=== PATIENT | male | born 1955 | race Caucasian/White ===

== ENCOUNTER 2018-12-04 15:53 | Inpatient (IN) | payer OTHER ==
[~2018-12-04] VITALS: Ht 185.4 cm; Wt 115.0 kg
[~2018-12-04 15:53] MED LIST: KETOROLAC 30 MG/1 ML ONE; ONDANSETRON 2MG/ML, 2ML ONE; PROPOFOL 10 MG/ML, 20ML ONE
[2018-12-04 17:19] LABS: BASOPHILS # (AUTO) 0.02 x10^3/uL (0-0.1); BASOPHILS % (AUTO) 0 % (0-1); EOSINOPHILS # (AUTO) 0.11 x10^3/uL (0-0.4); EOSINOPHILS % (AUTO) 2 % (1-7); LYMPHOCYTES # (AUTO) 1.18 x10^3/uL (1-3.4); LYMPHOCYTES % (AUTO) 19 % (22-44); MD NO; MEAN CORPUSCULAR HEMOGLOBIN 33.7 pg (27.5-34.5); MEAN CORPUSCULAR HGB CONC 33.9 g/dL (33.2-36.2); MEAN CORPUSCULAR VOLUME 99.3 fL (81-97); MONOCYTES # (AUTO) 0.66 x10^3/uL (0.2-0.8); MONOCYTES % (AUTO) 11 % (2-9); NEUTROPHILS # (AUTO) 4.09 x10^3/uL (1.8-6.8); NEUTROPHILS % (AUTO) 68 % (42-75); PLATELET COUNT 188 x10^3/uL (130-400); RED BLOOD COUNT 4.29 x10^6/uL (4.38-5.82); RED CELL DISTRIBUTION WIDTH 12.6 % (9.4-14.8)
--- NOTE | 2018-12-04 17:27 | NUR ---
PT TO ROOM FROM LOBBY
[2018-12-04 17:28] LABS: ALANINE AMINOTRANSFERASE 37 U/L (12-78); ALBUMIN 4.2 g/dL (3.4-5.0); ANION GAP 8 mmol/L (5-15); CALCIUM 9.7 mg/dL (8.5-10.1); CHLORIDE 101 mmol/L (98-107); CREATININE 1.24 mg/dL (0.7-1.3)
[2018-12-04 17:31] LABS: ALKALINE PHOSPHATASE 102 U/L (45-117); BILIRUBIN,TOTAL 0.6 mg/dL (0.2-1.0); TOTAL PROTEIN 7.6 g/dL (6.4-8.2)
[2018-12-04] MEDS ORDERED: SODIUM CHLORIDE FLUSH 10ML SYR IVF PRN (18:00)
--- NOTE | 2018-12-04 18:00 | NUR ---
PT REPORTS THAT HE TWISTED HIS KNEE LAST SUNDAY WALKING HIS DOG. PT STATES "I BLEW OUT MY KNEE". PT L KNEE IS SWOLLEN AND BRUISED, BUT PT REPORTS "I HAVE NO PAIN". AT BEDSIDE. PT HAD A TOTAL KNEE IN 2014 ON SAME KNEE.
--- NOTE | 2018-12-04 18:08 | NUR ---
REPORT GIVEN TO AMY FOR SURG
[2018-12-04] MEDS: SODIUM CHLORIDE 0.9% 1,000 ML IV SCH (18:10)
[2018-12-04] MEDS ORDERED: TRANEXAMIC ACID 100 MG/ML, 10ML ONE (18:23)
[2018-12-04] MEDS ORDERED: ROPIvacaine/PF 0.2%, 20 ML ONE (18:24)
[2018-12-04] MEDS ORDERED: EPINEPHRINE 1 MG/ML, 1ML ONE (18:25)
[2018-12-04] MEDS ORDERED: MORPHINE SULFATE 4 MG/ML, 1ML IVPush PRN ×2 (18:30→19:00)
[2018-12-04] MEDS ORDERED: ALUMINUM/MAG/SIMETHICONE 30 ML UDC PO PRN (18:30)
[2018-12-04] MEDS ORDERED: ZOLPIDEM 5MG TABLET PO PRN (18:30)
[2018-12-04] MEDS ORDERED: ONDANSETRON 2MG/ML, 2ML IVPush PRN (18:30)
[2018-12-04] MEDS ORDERED: DIPHENHYDRAMINE 25 MG CAPSULE PO PRN (18:30)
[2018-12-04] MEDS ORDERED: ONDANSETRON 4 MG TABLET PO PRN (18:30)
[2018-12-04] MEDS ORDERED: PROMETHAZINE 25 MG/ML, 1ML IM PRN (18:30)
[2018-12-04] MEDS ORDERED: DIAZEPAM 5 MG TABLET PO PRN (18:30)
[2018-12-04] MEDS: ACETAMINOPHEN 500 MG TABLET PO SCH (18:30)
[2018-12-04] MEDS ORDERED: OXYcodone IR 5MG TABLET PO PRN (18:30)
[2018-12-04] MEDS ORDERED: FENTANYL PF 100 MCG/2ML ONE ×4 (18:31→20:39)
[2018-12-04] MEDS ORDERED: MIDAZOLAM 1 MG/ML, 2ML ONE (18:31)
[2018-12-04] MEDS ORDERED: LIDOCAINE 2%, 6 ML JEL.PF.APP MM ONE (18:33)
[2018-12-04] MEDS ORDERED: DEXAMETHASONE 4 MG/ML, 1ML ONE ×2 (18:43→18:48)
[2018-12-04] MEDS ORDERED: VANCOMYCIN 1,000 MG ONE ×2 (18:46→19:28)
[2018-12-04] MEDS ORDERED: CEFAZOLIN 1,000 MG ONE ×2 (18:48)
[2018-12-04] MEDS ORDERED: HALOPERIDOL 5 MG/ML IV PRN (19:00)
[2018-12-04] MEDS ORDERED: HYDROmorphone 2 MG/ML, 1ML IVPush PRN (19:00)
[2018-12-04] MEDS ORDERED: MEPERIDINE/PF 25MG/0.5ML IVPush PRN (19:00)
[2018-12-04] MEDS ORDERED: LABETALOL 5MG/ML, 20ML IV PRN (19:00)
[2018-12-04] MEDS ORDERED: MIDAZOLAM 1 MG/ML, 2ML IV PRN (19:00)
[2018-12-04] MEDS ORDERED: ONDANSETRON 2MG/ML, 2ML IV PRN (19:00)
[2018-12-04] MEDS ORDERED: hydrALAzine 20 MG/ML, 1ML IV PRN (19:00)
[2018-12-04] MEDS ORDERED: ACETAMINOPHEN 325 MG TABLET PO PRN (19:00)
[2018-12-04] MEDS ORDERED: ALBUTEROL SULFATE 2.5 MG/3 ML NPPB PRN (19:00)
[2018-12-04] MEDS ORDERED: OXYcodone 5 MG/5 ML ORAL.SOL UDC PO PRN (19:00)
[2018-12-04] MEDS ORDERED: PROMETHAZINE 12.5 MG SUPP PR PRN (19:00)
[2018-12-04] MEDS ORDERED: EPHEDRINE 50 MG/ML, 1ML IVPush PRN (19:00)
[2018-12-04] MEDS ORDERED: PROMETHAZINE 25 MG/ML, 1ML IV PRN (19:00)
[2018-12-04] MEDS ORDERED: DIAZEPAM 5 MG/ML, 2ML IVPush PRN (19:00)
[2018-12-04] MEDS ORDERED: ONDANSETRON ODT 8 MG PO PRN (19:00)
[2018-12-04] MEDS ORDERED: VANCOMYCIN 1,000 MG IM ONE (19:29)
[2018-12-04] MEDS ORDERED: ROCURONIUM 10MG/ML,5ML ONE (20:01)
[2018-12-04] MEDS ORDERED: SUCCINYLCHOLINE 20 MG/ML, 10ML ONE (20:01)
[2018-12-04] MEDS ORDERED: ACETAMINOPHEN 650 MG/20.3 ML UDC ONE (20:22)
[2018-12-04] MEDS ORDERED: OXYcodone 5 MG/5 ML ORAL.SOL UDC ONE (20:23)
[2018-12-04] MEDS: FENTANYL PF 100 MCG/2ML IV PRN ×2 (20:41→20:51)
[2018-12-04] MEDS ORDERED: SIMVASTATIN 40 MG TABLET PO SCH (21:00)
[2018-12-04] MEDS ORDERED: TRANEXAMIC ACID 1,000 MG in SODIUM CHLORIDE 0.9% 100 ML IVPB ONE (21:00)
[2018-12-04] MEDS ORDERED: hydrALAzine 20 MG/ML, 1ML ONE (21:05)
[2018-12-04] MEDS: DOCUSATE 100 MG CAPSULE PO SCH (21:51)
[2018-12-04] MEDS: INSULIN REGULAR 100 UNITS/ML, 3ML VIAL SQ-INSULIN SCH (22:37)
[2018-12-05 00:09] VITALS: BP 126/71
[2018-12-05] MEDS: KETOROLAC 30 MG/1 ML IV SCH ×2 (01:30→08:37)
[2018-12-05] MEDS: ACETAMINOPHEN 500 MG TABLET PO SCH ×2 (02:12→08:37)
[2018-12-05] MEDS: CEFAZOLIN PMX 1GM/50ML 50 ML IVPB SCH ×2 (02:13→10:43)
[2018-12-05] MEDS: SODIUM CHLORIDE 0.9% 1,000 ML IV SCH ×3 (02:13→14:10)
[2018-12-05 04:05] VITALS: BP 156/73
[2018-12-05] MEDS ORDERED: ASPIRIN 81 MG TABLET EC PO SCH (06:00)
[2018-12-05] MEDS ORDERED: VANCOMYCIN PMX 1GM/200ML 200 ML IVPB ONE (06:30)
[2018-12-05 06:44] VITALS: BP 134/80
[2018-12-05] MEDS ORDERED: metFORMIN XR 500 MG TAB.ER.24H PO SCH (08:00)
[2018-12-05] MEDS: DOCUSATE 100 MG CAPSULE PO SCH (08:37)
[2018-12-05] MEDS: INSULIN REGULAR 100 UNITS/ML, 3ML VIAL SQ-INSULIN SCH ×2 (08:38→12:07)
[2018-12-05 08:44] VITALS: BP 126/71
[2018-12-05] MEDS ORDERED: TRAM50TA2 PO (11:47)
[2018-12-05] MEDS ORDERED: ASPI-496 PO (11:48)
[2018-12-05 13:00] VITALS: BP 123/70
== END 2018-12-05 14:25 | disposition home or self-care (01) | DRG 468 ==
LOC: OR 17:42 → EDIP 17:43 → OR 17:52 → 4NOR 21:15 → DCLOUNGE 12-05 14:10
PROVIDERS: ADMIT Orthopaedic Surgery; ATTEND Orthopaedic Surgery
PROC: 0SRW0JZ Replacement of Left Knee Joint, Tibial Surface with Synthetic Substitute, Open Approach (ICD-10-PCS; 2018-12-04)
PROC: 0SPW0JZ Removal of Synthetic Substitute from Left Knee Joint, Tibial Surface, Open Approach (ICD-10-PCS; principal; 2018-12-04 18:00)
DX: T84.023A Instability of internal left knee prosthesis, initial encounter (principal); Y83.8 Other surgical procedures as the cause of abnormal reaction of the patient, or of later complication, without mention of misadventure at the time of the procedure; E11.9 Type 2 diabetes mellitus without complications; I10 Essential (primary) hypertension; M65.9 Synovitis and tenosynovitis, unspecified; Z96.652 Presence of left artificial knee joint; E78.5 Hyperlipidemia, unspecified; E03.9 Hypothyroidism, unspecified; Y92.89 Other specified places as the place of occurrence of the external cause; Z91.040 Latex allergy status
CPT/HCPCS: 36415; 80053; 82962; 85025; 93005; G0378; J0171; J0690; J1100; J1815; J1885; J2250; J2405; J2704; J2795; J3010; J3370; C1776; J0330; J0360; J7030

== ENCOUNTER 2019-01-10 09:35 | Outpatient (CLI) | payer OTHER | END 2019-01-10 23:59 | disposition home or self-care (01) | LOC: STAR 09:35 | PROVIDERS: ATTEND Orthopaedic Surgery | DX: Z01.818 Encounter for other preprocedural examination (principal); M17.9 Osteoarthritis of knee, unspecified; R94.31 Abnormal electrocardiogram [ECG] [EKG]; Z96.659 Presence of unspecified artificial knee joint | CPT/HCPCS: 93005 ==

== ENCOUNTER 2019-01-13 09:29 | Inpatient (IN) | payer OTHER ==
[~2019-01-13] VITALS: Ht 185.4 cm; Wt 123.1 kg
[2019-01-14 08:27] VITALS: BP 122/74
== END 2019-01-14 14:18 | disposition home or self-care (01) | DRG 468 ==
LOC: ORIP 14:16 → 4NOR 20:13 → DCLOUNGE 01-14 14:03
PROVIDERS: ADMIT Orthopaedic Surgery; ATTEND Orthopaedic Surgery
PROC: 0SPU0JZ Removal of Synthetic Substitute from Left Knee Joint, Femoral Surface, Open Approach (ICD-10-PCS; principal; 2019-01-13)
PROC: 0SRU0J9 Replacement of Left Knee Joint, Femoral Surface with Synthetic Substitute, Cemented, Open Approach (ICD-10-PCS; 2019-01-13)
PROC: 0LQL0ZZ Repair Right Upper Leg Tendon, Open Approach (ICD-10-PCS; 2019-01-13)
PROC: 3E0T3BZ Introduction of Anesthetic Agent into Peripheral Nerves and Plexi, Percutaneous Approach (ICD-10-PCS; 2019-01-13)
DX: T84.093A Other mechanical complication of internal left knee prosthesis, initial encounter (principal); I10 Essential (primary) hypertension; E11.9 Type 2 diabetes mellitus without complications; Y83.8 Other surgical procedures as the cause of abnormal reaction of the patient, or of later complication, without mention of misadventure at the time of the procedure; Z88.8 Allergy status to other drugs, medicaments and biological substances; Z88.1 Allergy status to other antibiotic agents; Z91.040 Latex allergy status; Y92.098 Other place in other non-institutional residence as the place of occurrence of the external cause; Z79.84 Long term (current) use of oral hypoglycemic drugs
CPT/HCPCS: 36415; 80053; 82962; 85014; 85018; 85025; 85810; 87015; 87070; 87075; 87081; 87102; 87116; 87205; 87206; 89050; 89060; C1713; G0378; J0171; J0690; J1100; J1815; J1885; J2250; J2405; J2704; J2795; J3010; J3370; C1762; C1776; J7040; J7120